=== PATIENT | female | born 1970 | race Caucasian/White ===

== ENCOUNTER 2023-06-13 04:21 | Emergency (ER) | payer BC, OTHER, SELFPAY ==
--- NOTE | ~2023-06-13 | CT_ITS ---
Non-contrast CT scan of the Abdomen and Pelvis Clinical indication: Abdominal pain Technique: 2.5 mm axial scans were obtained through the abdomen and pelvis without intravenous or or al contrast. Dose reduction technique was used on this scan by utilizing automated exposure control a nd iterative reconstruction technique. The dose-length product (DLP) was 1016.20 mGy-cm. COMPARISON: 04/08/2019 Findings: Images through the lung bases reveal 4 mm left lower lobe pulmonary nodule. There are 2 adjacent 1-2 mm stones at the left UVJ, with minimal fullness of the left ureter and left renal collecting system. There are additional punctate nonobstructing left renal stones. No right re nal or ureteral stone. No right hydronephrosis. The liver, spleen, pancreas, and adrenals appear normal. Cholecystectomy clips are noted. There is no aortic aneurysm. There is no evidence of bowel obstruction. No appendicitis. Small fat-containing umbilical hernia not ed. Images through the pelvis were performed. There is no evidence of ascites or lymphadenopathy. Urinary bladder otherwise unremarkable. No pelvic mass evident. Impression: 2 adjacent 1-2 mm left UVJ stones, with minimal left hydroureteronephrosis. Additional punctate nonobstructing left renal stones. Very small fat-containing umbilical hernia. Reviewed, dictated and finalized at [facility]. Impression: 2 adjacent 1-2 mm left UVJ stones, with minimal left hydroureteronephrosis. Additional punctate nonobstructing left renal stones. Very small fat-containing umbilical hernia.
[2023-06-13 04:25] VITALS: BP 140/77; PULSE 54; RESP 17; TEMP 35.9; O2SAT 100
[2023-06-13 04:46] LABS: Basophils Absolute Auto 0.1 K/mm3 (0.0-0.1); Basophils Percent Auto 0.6 % (0.2-1.2); Eosinophils Absolute Auto 0.3 K/mm3 (0-0.3); Eosinophils Percent Auto 3.1 % (0-4.4); Hematocrit 44.2 % (37.0-47.0); Hemoglobin 14.6 g/dL (12.0-15.0); Immature Granulocyte Absolute 0.04 K/mm3 (0.00-0.031); Immature Granulocyte Percent A 0.5 % (0-0.5); Lymphocytes Absolute Auto 2.93 K/mm3 (0.9-3.2); Lymphocytes Percent Auto 35.3 % (18.3-44.2); Mean Corpuscular Volume 87.9 fl (80-100); Mean Platelet Volume 10.4 fl (7.4-10.4); Monocytes Absolute Auto 0.5 K/mm3 (0.1-0.6); Monocytes Percent Auto 6.5 % (2.6-8.5); Neutrophils Absolute Auto 4.5 K/mm3 (1.3-6.7); Platelet Count Result 297 k/mm3 (150-375); Red Blood Count 5.03 M/mm3 (4.2-5.4); Red Cell Distribution Width 14.8 % (11.5-14.5); White Blood Count 8.3 K/mm3 (4.5-10.0)
[2023-06-13 04:55] LABS: Alanine Aminotransferase 27 U/L (6-35); Albumin Level 4.4 g/dL (3.5-5.1); Alkaline Phosphatase 86 U/L (38-126); Anion Gap 10 mmol/L (8-16); Aspartate Amino Transferase 32 U/L (14-36); Bilirubin,Total 0.8 mg/dL (0.2-1.3); Blood Urea Nitrogen 25 mg/dL (7-17); Calcium 9.5 mg/dL (8.4-10.2); Carbon Dioxide 28 mmol/L (22-30); Chloride 101 mmol/L (98-107); Estimated CRCL calculation 58 ml/min; Estimated Glomerular Filt Rate 52; Glucose 114 mg/dL (65-110); Lipase 147 U/L (23-300); Potassium 2.9 mmol/L (3.4-5.0); Sodium 139 mmol/L (137-145)
--- NOTE | 2023-06-13 05:01 | ECG_ITS ---
Measurements Intervals [place] Rate: 50 P: 36 [place]: 143 QRS: 12 QRSD: 110 T: 6 QT: 475 QTc: 435 Interpretive Statements SINUS BRADYCARDIA BORDERLINE ST-T WAVE ABNORMALITY- ANT/INF LEADS BORDERLINE ECG NO PREVIOUS ECG AVAILABLE FOR COMPARISON Electronically Signed On 06-13-2023 6:31:10 CDT by Trevor Willingham D.O.
[2023-06-13 05:03] LABS: Appearance Urine Cloudy (Clear); Bilirubin Urine 2+ (Negative); Blood Urine 3+ (Negative); Color Urine Dark Yellow (Yellow); Glucose Urine UA Trace mg/dL (Negative); Ketones Urine 1+ mg/dL (Negative); Leukocyte Esterase Ur Negative LEU/UL (Negative); Nitrate Urine Positive (Negative); Protein Urine 2+ mg/dL (Negative); Specific Grav Ur >= 1.030 (1.001-1.035); pH Urine 5.5 (5.0-9.0)
[2023-06-13 05:05] LABS: Add Urine Microscopic? YES
[2023-06-13 05:13] LABS: RBC Urine 51-75 /hpf (0-2); WBC Urine 0-5 /hpf (0-3)
[2023-06-13 05:14] LABS: Squamous Epithelial Cell Urine Few /hpf (Few)
[2023-06-13] MEDS: ONDANSETRON INJ 4 MG/2 ML VIAL IV PUSH (05:35)
[2023-06-13] MEDS: MORPHINE SULFATE (*CRX) 4 MG/ML INJ IV PUSH (05:36)
[2023-06-13] MEDS: HYDROmorphone HCL INJ (*CRX) 1 MG/ML SYR IV PUSH (05:57)
--- NOTE | 2023-06-13 06:31 | ED.GENADULT ---
HPI - General Adult General Chief complaint: Abdominal Pain Stated complaint: back and belly pain Time Seen by Provider: 06/13/23 05:08 History of Present Illness HPI narrative: Patient presents to the emergency department with severe left flank pain. Symptoms started prior to arrival. Now intolerable. Patient appears very uncomfortable. She notes history of kidney stones Related Data Allergies Allergy/AdvReac Type Severity Reaction Status Date / Time Penicillins Allergy Mild YEAST Verified 06/13/23 04:47 INFECTION Review of Systems Review of Systems: Negative except what is documented in the HPI Exam Narrative: GENERAL: Very uncomfortable. HEAD: Normocephalic, atraumatic. EYES: PERRLA and EOMI. ENT: Nares clear, no rhinorrhea or epistaxis. Mucous membranes moist. NECK: Supple. CHEST: Clear to auscultation. No respiratory distress. HEART: Regular rate and rhythm. ABDOMEN: Soft, nontender, nondistended. EXTREMITIES: Normal range of motion. No edema. SKIN: Warm, dry, no rash. NEURO: No focal deficits. Alert and oriented x3. PSYCH: Normal mood and affect. Course Course Emergency Course: Differential diagnosis includes but not limited to kidney stone, colitis, diverticulitis, pyelonephritis Morphine did not help with pain, Dilaudid ordered. Patient comfortable but desatted. Oxygen placed Vital Signs Vital signs: Vital Signs Temperature 35.9 C L 06/13/23 04:25 Pulse Rate 54 L 06/13/23 04:25 Respiratory Rate 17 06/13/23 04:25 Blood Pressure 140/77 06/13/23 04:25 Pulse Oximetry 100 06/13/23 04:25 Oxygen Delivery Room Air 06/13/23 04:25 Temperature 35.9 C L 06/13/23 04:25 Pulse Rate 55 L 06/13/23 07:12 Respiratory Rate 13 06/13/23 07:12 Blood Pressure 125/70 06/13/23 07:12 Pulse Oximetry 100 06/13/23 07:12 Oxygen Delivery Room Air 06/13/23 04:25 Medical Decision Making [facility] Narrative Medical decision making narrative: Labs ordered and reviewed by myself. CBC grossly unremarkable. CMP creatinine 1.1. Urinalysis significant for RBCs and bilirubin. High clinical concern for kidney stone. CT result pending CT shows 2 small obstructing kidney stones next which other. Patient's pain has resolved. No signs of urinary tract infection. Creatinine at baseline 1.1. Will DC once the pain medications have worn off Vital Signs Vital Signs: Vital Signs Temperature 35.9 C L 06/13/23 04:25 Pulse Rate 54 L 06/13/23 04:25 Respiratory Rate 17 06/13/23 04:25 Blood Pressure 140/77 06/13/23 04:25 Pulse Oximetry 100 06/13/23 04:25 Oxygen Delivery Room Air 06/13/23 04:25 Temperature 35.9 C L 06/13/23 04:25 Pulse Rate 55 L 06/13/23 07:12 Respiratory Rate 13 06/13/23 07:12 Blood Pressure 125/70 06/13/23 07:12 Pulse Oximetry 100 06/13/23 07:12 Oxygen Delivery Room Air 06/13/23 04:25 Lab Data 06/13/23 04:39 06/13/23 04:39 Labs: Lab Results 06/13/23 Range/Units 04:39 WBC 8.3 (4.5-10.0) K/mm3 RBC 5.03 (4.2-5.4) M/mm3 Hgb 14.6 (12.0-15.0) g/dL Hct 44.2 (37.0-47.0) % MCV 87.9 (80-100) fl MCH 29.0 (26-34) pg MCHC 33.0 (32-36) g/dl RDW 14.8 H (11.5-14.5) % Plt Count 297 (150-375) k/mm3 MPV 10.4 (7.4-10.4) fl Immature Gran % (Auto) 0.5 (0-0.5) % Neut % (Auto) 54.0 (45.5-73.1) % Lymph % (Auto) 35.3 (18.3-44.2) % Addison % (Auto) 6.5 (2.6-8.5) % Eos % (Auto) 3.1 (0-4.4) % Baso % (Auto) 0.6 (0.2-1.2) % Lymph # (Auto) 2.93 (0.9-3.2) K/mm3 Addison # (Auto) 0.5 (0.1-0.6) K/mm3 Eos # (Auto) 0.3 (0-0.3) K/mm3 Baso # (Auto) 0.1 (0.0-0.1) K/mm3 Abs Immat Gran (auto) 0.04 H (0.00-0.031) K/mm3 Absolute Neuts (auto) 4.5 (1.3-6.7) K/mm3 Absolute Nucleated RBC 0.0 (0.0-0.012) K/mm3 Nucleated RBC % 0.0 (0.0-0.2) % Sodium 139 (137-145) mmol/L Potassium 2.9 L (3.4-5.0) mmol/L Chloride 101 (98-107) mmol/L Carbon Dioxide 28
[2023-06-13 06:42] VITALS: BP 130/70; PULSE 42; RESP 9; O2SAT 99
[2023-06-13] MEDS: KETOROLAC 30 MG/ML VIAL (*BKC) IV PUSH (06:54)
[2023-06-13] MEDS: TAMSULOSIN HCL 0.4 MG CAPSULE PO (06:54)
[2023-06-13 07:12] VITALS: BP 125/70; PULSE 55; RESP 13; O2SAT 100
--- NOTE | 2023-06-13 07:21 | PC.NURSE ---
Patient report received from GE Schmitz. All questions answered and care of patient assumed.
[2023-06-13 07:44] VITALS: BP 118/63; PULSE 59; RESP 18; O2SAT 99
== END 2023-06-13 08:02 | disposition home or self-care (01) ==
PROVIDERS: Emergency Provider Emergency Medicine
DX: N13.2 Hydronephrosis with renal and ureteral calculous obstruction (principal); M54.6 Pain in thoracic spine
CPT/HCPCS: 36415; 74176; 80053; 81001; 83690; 85025; 93005; 96374; 96375; 99284; A9270; J1170; J1885; J2270; J2405

== ENCOUNTER 2024-12-01 10:44 | Emergency (ER) | payer BC, OTHER, SELFPAY ==
--- OUTSIDE RECORDS SUMMARY | 2024-12-01 10:47 | XMS_ITS | Patient Health Summary ---
Author Organization [facility] Address [address] [place] [address] Care Team Providers Care Braid Folder Name Role Phone Manjit Bone MD Primary Care Provider [phone] Note from [facility],non-owned Affiliates and Associated Physician Practices is amultiple site organization consisting of ambulatory clinics and hospital sitesin [place], [place], [place] and [place]. This disclosure is being madepursuant to the Care Everywhere program and may not contain all information available regarding this patient. Last updated 18.[facility] Allergies * Amlodipine Base(Other) -Low Criticality * Losartan(Other) -Low Criticality * Oxycodone-Acetaminophen(Nausea and/or Vomiting) -Low Criticality * Penicillins(Other) -Medium Criticality * Oxycodone-Acetaminophen(Other),Inactive Medications * Be aware that medications may not be up to date on this document. Alwaysverify current medications with the patient. * triamterene-hydroCHLOROthiazide (Maxzide-25) 37.5-25 MG tablet(Started 04/03/2024) Active Problems No known active problems Immunizations * INFLUENZA VACCINE(Given 06/25/2018) Social History Tobacco Use Types Packs/Day Years Used Date Smoking Tobacco: Former Smokeless Tobacco: Never Tobacco Cessation:Counseling Given: Not Answered Alcohol Use Standard Drinks/Week Comments Yes 1 (1 standard drink = 0.6 oz pur e alcohol) PHQ-2 Answer Date Recorded Patient Health Questionnaire-2 Score 0 06/17/2024 Sex and Gender Information Value Date Recorded Sex Assigned at Not on file Gender Identity Not on file Sexual Orientation Not on file Last Filed Vital Signs Vital Sign Reading Time Taken Comments Blood Pressure 118/80 06/24/2024 9:50 AM CDT Pulse - - Temperature - - Respiratory Rate - - Oxygen Saturation - - Inhaled Oxygen Concentration - - Weight 82.1 kg (181 lb) 06/24/2024 9:50 AM CDT Height 165.1 cm (5' 5 ) 06/24/2024 9:50 AM CDT Body Mass Index 30.12 06/24/2024 9:50 AM CDT Procedures * PAP IG LB+HPV APTIMA(Performed 06/24/2024) Performed for Well woman exam * OCCULT BLOOD FECES 1-3 SCREEN POINT OF CARE (AMB)(Performed 06/24/2024) Performed for Colon cancer screening * PAP IG LB+HPV APTIMA(Performed 06/19/2023) Performed for Well woman exam * OCCULT BLOOD FECES 1-3 SCREEN POINT OF CARE (AMB)(Performed 06/19/2023) Performed for Colon cancer screening * PAP IG LB+HPV APTIMA(Performed 06/07/2022) Performed for Well woman exam * OCCULT BLOOD FECES 1-3 SCREEN POINT OF CARE (AMB)(Performed 06/07/2022) Performed for Colon cancer screening * PAP IG LB+HPV APTIMA(Performed 01/25/2021) Performed for Well woman exam * OCCULT BLOOD FECES 1-3 SCREEN POINT OF CARE (AMB)(Performed 01/25/2021) Performed for Colon cancer screening * PAP IG LB + HPV HR(Performed 01/18/2019) Performed for Well woman exam * DERMATOPATHOLOGY(Performed 11/13/2017) * PAP IG LB + HPV HR(Performed 11/10/2017) Performed for Well woman exam * PAP IG LB + HPV HR(Performed 11/02/2016) Performed for Well woman exam Results * PAP IG LB+HPV APTIMA (06/24/2024 10:37 AM CDT) Only the most recent of4 resultswithin the time period is included. Diagnosis Comment [facility] ACCOUNT BILL Comment: NEGATIVE FOR INTRAEPITHELIAL LESION OR MALIGNANCY. CELLULAR CHANGES ASSOCIATED WITH ATROPHY ARE PRESENT. Specimen Adequacy Comment [facility] ACCOUNT BILL Comment: Satisfactory for evaluation. Endocervical component may not be distinguished in cases of atrophy. Clinician Provided ICD10 Comment [facility] ACCOUNT BILL Comment:Z01.419 Performed by Comment [facility] ACCOUNT BILL Comment:Jeannie Agustin, Cytotec hnologist (ASCP) Comment . [facility] ACCOUNT BILL Note Comment [facility] ACCOUNT BILL Comment: The Pap smear is a screening test designed to aid in the detection of premalignant and malignant conditions of the uterine cervix. It is not a diagnostic procedure and should not be used as the sole means of detecting cervical cancer. Both false-positive and false-negative reports do occur. IGLBP CPT Code Automation Comment [facility] ACCOUNT BILL Comment: This liquid based ThinPrep(R) pap test was screened with the use of an image guided system. Human papillomavirus Aptima Negative Negative [facility] ACCOUNT BILL Comment: This nucleic acid amplification test detects fourteen high-risk HPV types (16,18,31,33,35,39,45,51,52,56,58,59,66,68) without differentiation. Pathology/Cytolog y ENTIRE VAGINA / Unknown 06/24/2024 10:37 AM CDT 06/24/2024 Comment:Vaginal Release to p a Narrative [facility] ACCOUNT BILL - 06/28/2024 1:10 PM CDT Performed at: 01 - [address] [id number] Asset Protection Agent: Shonda Ag MD, Phone: [phone] Performed at: 02 - [address] [id number] Asset Protection Agent: Shonda Ag MD, Phone: [phone] Specimen Comment: [id number] Specimen Comment: No. of containers..01 ThinPrep Vial Blue Llanos MD LAB - PATHOLOGY/CYT OLOGY ORDERABLES [facility] ACCOUNT BILL [address] [place] [address] * OCCULT BLOOD FECES 1-3 SCREEN POINT OF CARE (AMB) (06/24/2024 10:21 AM CDT) Only the most recent of4 resultswithin the time period is included. Occult Blood 1 neg Negative [facility] Occult Blood 2 [facility] Occult Blood 3 [facility] Card Lot Number [facility] Card Exp Date [facility] Developer Lot Number [facility] Developer Expiration Date [facility] QC Negative [facility] QC Positive [facility] Stool STOOL SPECIMEN / Unknown 06/24/2024 10:21 AM CDT Blue Llanos MD LAB - POINT OF CARE ORDERABLES [facility] [address], [facility] [address] [place] [address], [facility] [phone] * PAP IG LB + HPV HR (01/18/2019 10:34 AM CDT) Only the most recent of3 resultswithin the time period is included. Diagnosis [facility] ACCOUNT BILL Comment: NEGATIVE FOR INTRAEPITHELIAL LESION OR MALIGNANCY. THIS SPECIMEN WAS RESCREENED PART OF OUR TRANSFER AND PUMPHOUSE OPERATOR PROGRAM. Specimen Adequacy [facility] ACCOUNT BILL Comment:Satisfactory for marky luation. No endocervical component is identified. Clinician Provided ICD10 [facility] ACCOUNT BILL Comment:Z01.419 Performed by [facility] ACCOUNT BILL Comment:Susi Sawant, Cyto technologist (ASCP) QC Reviewed by [facility] ACCOUNT BILL Comment:Cat Gillespie ytotechnologist (ASCP) Comment . [facility] ACCOUNT BILL Note [facility] ACCOUNT BILL Comment: The Pap smear is a screening test designed to aid in the detection of premalignant and malignant conditions of the uterine cervix. It is not a diagnostic procedure and should not be used as the sole means of detecting cervical cancer. Both false-positive and false-negative reports do occur. . IGLBP CPT Code Automation [facility] ACCOUNT BILL Comment: This liquid based ThinPrep(R) pap test was screened with the use of an image guided system. Human papillomavirus High Risk Negative Negative [facility] ACCOUNT BILL Comment: This high-risk HPV test detects thirteen high-risk types (16/18/31/33/35/39/45/51/52/56/58/59/68) without differentiation. . Pathology/Cytolog y ENTIRE VAGINA / Unknown 01/18/2019 10:34 AM CDT 01/18/2019 Narrative [facility] ACCOUNT BILL - 01/22/2019 11:11 AM CDT No. of containers..01 ThinPrep Vial Resulting Agency Comment Lab Testing performed at: [address] [place] [id number] Blue Llanos MD LAB - PATHOLOGY/CYT OLOGY ORDERABLES [facility] ACCOUNT BILL [address] [place] [address] * PATHOLOGY TISSUE FOR DERMATOLOGY (11/13/2017 12:00 AM ADMINISTRATIVE PROGRAM SPECIALIST) Result CASE: [id number] PATIENT: SAMAN ARRINGTON PATHOLOGIC DIAGNOSIS: A. Right cheek: INTRADERMAL MELANOCYTIC NEVUS, ERODED PRESENT AT MARGIN B. Chin: INTRADERMAL MELANOCYTIC NEVUS (see microscopic description) C. Post neck: COMPOUND MELANOCYTIC NEVUS CLINICAL DATA: A: BCC vs nevus. Check margins. B: R/O irrit. nevus. Encantado and brown. C: R/O irrit. nevus. Encantado/brown papule. GROSS DESCRIPTION: A: Received is one formalin filled container labeled with the patients name and designated right cheek. The specimen consists of a shave measuring [id number]. The margin is inked green. Jar 0. B: Received is one formalin filled container labeled with the patients name and designated chin. The specimen consists of a shave measuring [id number]. Jar 0. C: Received is one formalin filled container labeled with the patients name and designated post neck. The specimen consists of a shave measuring [id number]. The specimen is bisected and submitted in 1 cassette. Jar 0. MICROSCOPIC DESCRIPTION: SPECIMEN A The epidermis is eroded. There are nests of melanocytes within the dermis that mature with depth. This lesion is present at the margin of the specimen. SPECIMEN B There are nests of melanocytes within the dermis that mature with depth. Additional deeper sections were obtained and reviewed. SPECIMEN C There are nests of melanocytes at the dermal-epider mal junction and within the dermis. Electronicall y signed out by Marialuisa Bullock M.D., PhD. 11/15/2017 11:12:45AM DERMATOPATHOLOGY LABORATORY Comment: Performed at: Dermatopathology Laboratory [facility] Department of Dermatology [address] [place] [address], 5[address] [place] [address] Phone number: [phone] FAX: [phone] 11/13/2017 11/14/2017 Quiana Mary MD LAB - PATHOLOGY/CYTO LOGY ORDERABLES Performing Organization Address City/State/[facility] Co de Phone Number DERMATOPATHOLOGY LABORATORY [facility] Department of Dermatology [address] [place] [address], 5th Floor Lab [address] [phone] Care Teams Braid Folder Relationship Specialty Start Date End Date Manjit Bone MD PCP - General Internal Medicine 11/02/16
--- OUTSIDE RECORDS SUMMARY | 2024-12-01 10:47 | XMS_ITS | Referral Summary ---
Author Organization [facility] Address [address] [place] [address] Care Team Providers Care Ticket Worker Name Role Phone Manjit Bone MD Primary Care Provider +1- [phone] Source Comments [facility],non-[facility] Affiliates and Associated Physician Practices is amultiple site organization consisting of ambulatory clinics and hospital sitesin [place], [place], [place] and [place]. This disclosure is being madepursuant to the Care Everywhere program and may not contain all information available regarding this patient. Last updated 18.[facility] Allergies Active Allergy Reactions Criticality Noted Date Comments Amlodipine Base Other Low 10/06/2017 Losartan Other Low 10/06/2017 Oxycodone-Acetaminophen Nausea and/or Vomiting Low 06/24/2024 Penicillins Other Medium 11/02/2016 Reaction: yeast infection, Terrible yeast infection Other reaction(s): Other (See comments) Reaction: yeast infection, Medications * Be aware that medications may not be up to date on this document. Alwaysverify current medications with the patient. Medication Sig Dispensed Refills Start Date End Date Status triamterene-hydroCHLOROthiazide (Maxzide-25) 37.5-25 MG tablet 04/03/2024 Active Active Problems No known active problems Immunizations Name Administration Dates Next Due INFLUENZA VACCINE 06/25/2018 Social History Tobacco Use Types Packs/Day Years [...] Mass Index 30.12 06/24/2024 9:50 AM CDT Plan of Treatment Not on file Care Teams Ticket Worker Relationship Specialty Start Date End Date Manjit Bone MD PCP - General Internal Medicine 11/02/16
--- OUTSIDE RECORDS SUMMARY | 2024-12-01 10:47 | XMS_ITS | Clinical Summary ---
Author Organization [facility] [employer] [facility] Address [address] [place] [address] Care Team Providers Care Logistics Project Manager Name Role Phone Manjit Bone MD Primary Care Provider +1- [phone] Source Comments [facility] [employer] [facility],non-[facility] Affiliates and Associated Physician Practices is amultiple site organization consisting of ambulatory clinics and hospital sitesin [place], [place], [place] and [place]. This disclosure is being madepursuant to the Care Everywhere program and may not contain all information available regarding this patient. Last updated 18.[facility] Allergies Active Allergy Reactions Criticality Noted Date [...] Administration Dates Next Due INFLUENZA VACCINE 06/25/2018 Family History Medical History Relation Name Comments Cancer - Bladder Father Relation Name Status Comments Father Social History Tobacco Use Types Packs/Day Years [...] 06/24/2024 9:50 AM CDT Plan of Treatment Health Maintenance Due Date Last Done Comments COLON MONITORING 1969 COLONOSCOPY - COLON CA SCREENING 1969 CT COLONOGRAPHY - COLON CA SCREENING 1969 FIT - COLON CA SCREENING 1969 FLEX SIG - COLON CA SCREENING 1969 LIPID TESTING 1969 HIV SCREENING 1984 HEPATITIS C SCREENING 05/14/1987 DTAP/TDAP/TD VACCINES (1 - Tdap) 1988 HEPATITIS B VACCINE (1 of 3 - 19+ 3-dose series) 1988 SCREENING FOR DIABETES 11/10/2017 PNEUMOCOCCAL VACCINE 50+ (1 of 1 - PCV) 2019 ZOSTER VACCINE (1 of 2) 2019 COVID-19 VACCINE ( - 2023- season) 2024 12/25/2022, 03/25/2022, 03/25/2022, Additional history exists INFLUENZA VACCINE (#1) 2024 , 06/24/2019, 06/25/2018 MAMMOGRAM 07/13/2024 07/13/2023, 06/25, 07/16/2022 (Done Outside Per Report), Additional history exists DEPRESSION SCREENING 09/25/2024 06/24/2024, 06/19/2023, 06/07/2022 COLOGUARD (AGES 45-75) - COLON CA SCREENING 08/11/2025 08/11/2022 Colorectal Cancer Screening 08/11/2025 HIB VACCINE Aged Out No longer eligi ble based on patient's age to complete this topic HPV VACCINE Aged Out No longer eligi ble based on patient's age to complete this topic MENINGOCOCCAL (Group B) VACCINE Aged Out No longer eligible based on patient's age to complete this topic MENINGOCOCCAL VACCINE Aged Out No pj ovidio eligible based on patient's age to complete this topic PNEUMOCOCCAL VACCINE Aged Out No long er eligible based on patient's age to complete this topic Care Teams Logistics Project Manager Relationship Specialty Start Date End Date Manjit Bone MD PCP - General Internal Medicine 11/02/16
--- OUTSIDE RECORDS SUMMARY | 2024-12-01 10:47 | XMS_ITS | Clinical Summary ---
Author Organization [facility] Address [address] [place] [address] Care Team Providers Care Covering And Lining Supervisor Name Role Phone Manjit Bone MD Primary Care Provider [phone]- [phone] Allergies Active Allergy Reactions Criticality Noted Date Comments Amlodipine Besylate Fatigue Low 10/06/2017 Losartan Fatigue Low 10/06/2017 Oxycodone-Acetaminophen Nausea & Vomiting Low Penicillins Other (See comments) Medium Reaction: yeast infection, Medications triamterene-hydr oCHLOROthiazide 37.5-25 mg per tablet/capsule Take 1 tablet/caps ule by mouth daily 90 tablet 4 07/29/2024 Active Active Problems Problem Noted Date Diagnosed Date Screening for malignant neop lasm of colon:cologuard neg 201803/23/2021 Diverticulitis of large inte suha without perforation or abscess without bleeding 04/16/2019 Benign hypertension 07/21/2017 Resolved Problems Problem Noted Date Diagnosed Date Resolved Date Lower abdominal pain 04/16/2019 022 Immunizations Immunization Administration Dates Next Due Influenza, Quadrivalent, Rec ombinant, Egg Free, Preservative Free, Intramuscular 07/04/2022 Influenza, Unspecified 06/24/2019,2018,06/25/2018,06/25 Watson (J&J) SARS-CoV-2 Vaccination 12/03/2020 MMR 06/08/1993 Moderna SARS-CoV-2 Monovalen t Vaccination (12+ YRS) 12/25/2022 Pfizer SARS-CoV-2 Monovalent Vaccination (12+ Yrs) PURPLE 03/25/2022,09/14/2021 Td, adsorbed 06/08/1993 Tdap 07/29/2024,09/23/2014 ZOSTER Recombinant 07/18/2022,03/25/2022 Surgical History Surgery Date Site/Laterality Comments [place] LAPAROSCOPY SURG CHOLECYSTECTOMY Cholecystectomy Laparoscopic - 1990 (Added by TW Conv) HYSTERECTOMY Medical History Medical History Date Comments Personal history of other di seases of the circulatory system History of hypertension - (A dded by HANSA Conv) Personal history of urinary calculi History of renal calculi - (Added by TW Conv) Cramp and spasm Trismus - (Added by TW Conv) Hypertension Benign hypertension 07/21/2017 Diverticulitis of large inte suha without perforation or abscess without bleeding 04/16/2019 Family History Medical History Relation Name Comments Bladder Cancer Father Diverticulitis Father Diabetes Mother Kidney disease Mother Relation Name Status Comments Father Mother Alive Sister Alive Social History Tobacco Use Types Packs/Day Years Used Date Smoking Tobacco: Never Smokeless Tobacco: Never Tobacco Cessation:Counseling Given: Not Answered Alcohol Use Standard Drinks/Week Comments Yes 0 (1 standard drink = 0.6 oz pur e alcohol) AUDIT-C Answer Date Recorded Frequency of Alcohol Consumption 2-4 times a mon07/26/2019 Average Number of Drinks Not on file 019 Frequency of Binge Drinking Not on file 09/2018 Comments Unknown Sex and Gender Information Value Date Recorded Sex Assigned at Not on file Legal Sex Female 3:43 PM CLAM BED WORKER Gender Identity Not on file Sexual Orientation Not on file 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 Not on file Not on file Obstetrics History Last Filed Vital Signs Vital Sign Reading Time Taken Comments Blood Pressure 122/82 07/29/2024 8:29 AM CLAM BED WORKER Pulse 82 07/29/2024 8:29 AM CLAM BED WORKER Temperature 36.6 C (97.9 F) 07/29/2024 8:29 AM CLAM BED WORKER Respiratory Rate - - Oxygen Saturation - - Inhaled Oxygen Concentration - - Weight 81.2 kg (179 lb) 07/29/2024 8:29 AM CLAM BED WORKER Height 167.6 cm (5' 5.98 ) 07/29/2024 8:29 AM CS T Body Mass Index 28.91 07/29/2024 8:29 AM CLAM BED WORKER Plan of Treatment Scheduled Procedures Name Priority Associated Diagnoses Date/Ti me COLONOSCOPY Positive colorectal cancer screening using Cologuard test Health Maintenance Due Date Last Done Comments Colon Cancer Screening-Colonoscopy 1969 Depression Screening 1969 Hepatitis C Screening 1969 Hepatitis B Screening 1987 Covid-19 Vaccine ( season) 2024 12/25/2022, 03/25/2022, 09/14/2021, Additional history exists Influenza Vaccine (#1) 2024 , 06/24/2019, 06/24/2019, Additional history exists Breast Cancer Screening-Mammogram 07/18/2025 07/18/2024, 07/13/2023, 07/04/2022, Additional history exists Regular Well Visit/Exam 18-64 07/29/2025 07/29/2024, 07/20/2023, 07/04/2022, Additional history exists DTaP/Tdap/Td Vaccine (3 - Td or Tdap) 07/29/2034 07/29/2024, 09/23/2014, 06/08/1993 Zoster Vaccine Completed 07/18/2022, 03/25/2022 Colon Cancer Screening-DNA Stool Discontinued 08/11/2022 Colon Cancer Screening-FIT Discontinued 08/11/2022 Pneumococcal vaccine <65 Aged Out No longer eligible based on patient's age to complete this topic Procedures Procedure Name Priority Date/Time Associated Diagnosis Comments SCREENING MAMMOGRAM BILATERAL W MEET Schedule Routine, Read Routine (OP Routine) 07/18/2024 7:40 AM CDT Screening mammogram, encounter for STOOL DNA COLOGUARD Routine 08/11/2022 2:20 PM CLAM BED WORKER Screening for colorectal cancer from Last 3 Months or Most Recently Relevant to Health Maintenance Results * Screening Mammogram Bilateral W Meet (07/18/2024 7:40 AM CDT) Anatomical Region Laterality Modality Breast Bilateral Mammography Narrative 07/18/2024 10:38 AM CDT Examination: Screening Mammogram Bilateral W Meet: 07/18/24 Clinical: Screening mammogram, encounter for. Prior Study Comparisons: Comparison was made to the prior available relevant studies at the time of interpretation. Findings: Screening Mammogram Bilateral W Meet Bilateral No significant masses, malignant type calcifications, skin thickening, nipple retraction, or significant lymphadenopathy is noted in either breast. Computer Aided Detection was utilized for the interpretation of this study. There are scattered areas of fibroglandular density. The patient will be notified of results by letter. Impression: BI-RADS ATLAS category (overall): 1 - Negative Overall Assessment: 1 - Negative Recommendation: - Routine Screening Mammogram in 1 Yr for both breasts. us Self Screening Mammogram IMG MAMMO PROCEDURES Fi nal Result * Stool DNA - Cologuard (08/11/2022 2:20 PM CLAM BED WORKER) Stool DNA - Cologuard Negative Negative [employer] (CLIA #:[id number]) Comment: NEGATIVE TEST RESULT. A negative Cologuard result indicates a low likelihood that a colorectal cancer (CRC) or advanced adenoma (adenomatous polyps with more advanced pre-malignant features) is present. The chance that a person with a negative Cologuard test has a colorectal cancer is less than 1 in 1500 (negative predictive value >99.9%) or has an advanced adenoma is less than 5.3% (negative predictive value 94.7%). These data are based on a prospective cross-sectional study of 10,000 individuals at average risk for colorectal cancer who were screened with both Cologuard and colonoscopy. (Lacie Negro et al, N Engl J Med 2014;370(14):1961-1489) The normal value (reference range) for this assay is negative. COLOGUARD RE-SCREENING RECOMMENDATION: Periodic colorectal cancer screening is an important part of preventive healthcare for asymptomatic individuals at average risk for colorectal cancer. Following a negative Cologuard result, the [place] Cancer Society and U.S. Multi-Society Task Force screening guidelines recommend a Cologuard re-screening interval of 3 years. References: [place] [employer] Society Guideline for Colorectal Cancer Screening: https://www.cancer.org/cancer/llknj-ofifqc-bhqrbe/ohscoemly-zxwarllxt-zfkwxuc/ac s-rec ommendations.html.; Андрей VALERIO, Broderick BOB, Abigail BALTAZAR, Colorectal Cancer Screening: Recommendations for Physicians and Patients from the U.S. Multi-Society Task Force on Colorectal Cancer Screening , Am J Gastroenterology 2017; 112:1727-8964. TEST DESCRIPTION: Composite algorithmic analysis of stool DNA-biomarkers with hemoglobin immunoassay. Quantitative values of individual biomarkers are not reportable and are not associated with individual biomarker result reference ranges. Cologuard is intended for colorectal cancer screening of adults of either sex, 45 years or older, who are at average-risk for colorectal cancer (CRC). Cologuard has been approved for use by the U.S. FDA. The performance of Cologuard was established in a cross sectional study of average-risk adults aged 50-84. Cologuard performance in patients ages 45 to 49 years was estimated by sub-group analysis of near-age groups. Colonoscopies performed for a positive result may find as the most clinically significant lesion: colorectal cancer [4.0%], advanced adenoma (including sessile serrated polyps greater than or equal to 1cm diameter) [20%] or non- advanced adenoma [31%]; or no colorectal neoplasia [45%]. These estimates are derived from a prospective cross-sectional screening study of 10,000 individuals at average risk for colorectal cancer who were screened with both Cologuard and colonoscopy. (Lacie Jaeger. et al, N Engl J Med 2014;370(14):5384-7410.) Cologuard may produce a false negative or false positive result (no colorectal cancer or precancerous polyp present at colonoscopy follow up). A negative Cologuard test result does not guarantee the absence of CRC or advanced adenoma (pre-cancer). The current Cologuard screening interval is every 3 years. ([place] Cancer Society and U.S. Multi-Society Task Force). Cologuard performance data in a 10,000 patient pivotal study using colonoscopy as the reference method can be accessed at the following location: www.[employer]/results. Additional description of the Cologuard test process, warnings and precautions can be found at www.[employer].com. Stool 08/11/2022 2:20 PM CLAM BED WORKER 08/12/2022 10:37 AM CLAM BED WORKER Manjit Bone MD LAB BODY FLUIDS AND STOOLS ORDERABLES Final Result [facility] (CLIA #:[id number]) [place] [address] from Last 3 Months or Most Recently Relevant to Health Maintenance Insurance ANTHEM ACCESS CHOICE ANTHEM ACCESS AETNA SIG [id number] [place] [address] [place] [address] [facility] [address] [place] [place] [address] [place] [address] FORMERLY [facility], [facility] ACCESS CHOICE Member Subscriber Plan / Payer ( fective 2009-Present) Name:Christina Arrington Relation to Subscriber:Self Name:CHRISTINA ARRINGTON Payer ID:[id number] (NAIC) Type:[place] Address: [address] [place] [address] ANTHEM ACCESS CHOICE Member Subscriber Plan / Payer (Ef fective 2018-Present) Name:TrangChristina Relation to Subscriber:Self Name:TRANGCHRISTINA A Payer ID:[id number] (NAIC) Type:[facility] Address: [facility] [id number] [address] Care Teams Covering And Lining Supervisor Relationship Specialty Start Date End Date Manjit Bone MD [address] [place] [address] PCP - General 01/20/17
--- OUTSIDE RECORDS SUMMARY | 2024-12-01 10:47 | XMS_ITS | Referral Summary ---
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 on file Not on file Last Filed Vital Signs Vital Sign Reading Time Taken Comments Blood Pressure 122/82 07/29/2024 8:29 AM OUTSIDE INSTALLATION MACHINIST Pulse 82 07/29/2024 8:29 AM OUTSIDE INSTALLATION MACHINIST Temperature 36.6 C (97.9 F) 07/29/2024 8:29 AM OUTSIDE INSTALLATION MACHINIST Respiratory Rate - - Oxygen Saturation - - Inhaled Oxygen Concentration - - Weight 81.2 kg (179 lb) 07/29/2024 8:29 AM OUTSIDE INSTALLATION MACHINIST Height 167.6 cm (5' 5.98 ) 07/29/2024 8:29 AM CS T Body Mass Index 28.91 07/29/2024 8:29 AM OUTSIDE INSTALLATION MACHINIST Plan of Treatment Scheduled Procedures Name Priority Associated Diagnoses Date/Ti me COLONOSCOPY Positive colorectal cancer screening using Cologuard test Procedures Procedure Name Priority Date/Time Associated Diagnosis Comments SCREENING MAMMOGRAM BILATERAL W MEET Schedule Routine, Read Routine (OP Routine) 07/18/2024 7:40 AM CDT Screening mammogram, encounter for STOOL DNA COLOGUARD Routine 08/11/2022 2:20 PM OUTSIDE INSTALLATION MACHINIST Screening for colorectal cancer from Last 3 [...] Stool DNA - Cologuard (08/11/2022 2:20 PM OUTSIDE INSTALLATION MACHINIST) Stool DNA - Cologuard Negative Negative [facility] (CLIA #:[id number]) Comment: NEGATIVE TEST RESULT. A negative Cologuard [...] screened with both Cologuard and colonoscopy. (Lacie Hemphill al, N Engl J Med 2014;370(14):6529-4682) The normal value (reference range) for this assay is negative. COLOGUARD RE-SCREENING RECOMMENDATION: Periodic colorectal cancer screening is an important part of preventive healthcare for asymptomatic individuals at average risk for colorectal cancer. Following a negative Cologuard result, the [place] Cancer Society and U.S. Multi-Society Task Force screening guidelines recommend a Cologuard re-screening interval of 3 years. References: [place] Cancer Society Guideline for Colorectal Cancer Screening: https://www.cancer.org/cancer/isnac-ptrwvp-sgettj/lzwqrqbzj-omlbojlyi-zmahaii/ac s-rec ommendations.html.; Андрей VALERIO, Broderick BOB, Abigail BALTAZAR, Colorectal Cancer Screening: Recommendations for Physicians and Patients from the U.S. Multi-Society Task Force on Colorectal Cancer Screening , Am J Gastroenterology 2017; 112:8334-3015. TEST DESCRIPTION: Composite algorithmic analysis of stool [...] Negro et al, N Engl J Med 2014;370(14):4896-9701.) Cologuard may produce a false negative or false positive result (no colorectal cancer or precancerous polyp present at colonoscopy follow up). A negative Cologuard test result does not guarantee the absence of CRC or advanced adenoma (pre-cancer). The current Cologuard screening interval is every 3 years. ([place] Cancer Society and U.S. Multi-Society Task Force). Cologuard performance data in a 10,000 patient pivotal study using colonoscopy as the reference method can be accessed at the following location: www.[employer]/results. Additional description of the Cologuard test process, warnings and precautions can be found at www.cologuard.com. Stool 08/11/2022 2:20 PM OUTSIDE INSTALLATION MACHINIST 08/12/2022 10:37 AM OUTSIDE INSTALLATION MACHINIST Manjit Bone MD LAB BODY FLUIDS AND STOOLS ORDERABLES Final Result [facility] (CLIA #:[id number]) [address] [place] [address] from Last 3 Months or Most Recently Relevant to Health Maintenance Insurance ANTHEM ACCESS CHOICE ANTHEM ACCESS AETNA SIG [id number] [facility] [place] [address] [address] [place] [address] [facility] [place] [address] [place] [address] [employer] ACCESS CHOICE Member Subscriber Plan / Payer ( fective 2009-Present) Name:Melany Arrington Relation to Subscriber:Self Name:MELANY ARRINGTON Payer ID:[id number] (NAIC) Type: [employer] Address: [address] [facility] H[facility]/PPO Address: [facility] [address] [place] [address] ANTHEM ACCESS CHOICE Member Subscriber Plan / Payer (Ef fective 2018-Present) Name:Melany Arrington Relation to Subscriber:Self Name:MELANY ARRINGTON Payer ID:[id number] ([facility]) Type:[facility] Address: [address] [facility] HMO/PPO Address: [facility] [address] [place] [address] Care Teams General Operator Relationship Specialty Start Date End Date Manjit Bone MD [address] [place] [address] PCP - General 01/20/17
--- NOTE | 2024-12-01 10:49 | ED_ITS ---
HPI - Extremity Problem General Chief complaint: Back Pain/Injury Stated complaint: LT Leg Pain Time Seen by Provider: 12/01/24 10:49 Source: patient, RN notes reviewed and old records reviewed Mode of arrival: ambulatory Limitations: no limitations History of Present Illness HPI Narrative: patient presents with complaints of low back pain that radiates to the left leg. She reports that pain began 2 weeks ago. She denies any injury or trauma. She denies any numbness or tingling. She denies any change in bowel or bladder pattern. She is observed ambulating with a steady gait. States that she has been taking multiple skub-ypm-igdluiw medications and seeing her chiropractor with poor results. She is not in any obvious distress at this time Related Data Allergies Allergy/AdvReac Type Severity Reaction Status Date / Time Penicillins AdvReac Mild YEAST Verified 12/01/24 10:58 INFECTION Review of Systems Review of Systems: All systems reviewed & are unremarkable except as noted in HPI and below Constitutional: Constitutional: Reports no additional constitutional complaints ENT: Reports system reviewed and no additional complaints, except as documented Cardiovascular: Cardiovascular: Reports no additional cardiovascular complaints Respiratory: Respiratory: Reports no additional respiratory complaints Gastrointestinal: Gastrointestinal: Reports no additional gastrointestinal complaints Musculoskeletal: Musculoskeletal: Reports no additional musculoskeletal complaints, Reports as per HPI, Reports back pain and Reports radiating pain into limb PMFSH Comments At the time of my signature, I reviewed and agree with the nursing past medical, surgical, social, and family history. There is no relevant family history pertinent to the patient complaint. Exam Const: General: cooperative, no acute distress, alert and awake Orientation/consciousness: oriented to person, oriented to place and oriented to time HENMT: Head: normal to inspection Resp: Effort & Inspection: normal respiratory effort and able to speak in complete sentences Auscultation: clear to auscultation bilaterally, no crackles, no rales, no rhonchi and no wheezes Cardio: Palpation: normal PMI Rate: regular rate Rhythm: regular rhythm Heart sounds: S1 normal heart sound present and S2 normal heart sound present Back/Spine/Pelvis: Thoracic/Lumbar Spine: thoracic and lumbar spine normal to inspection, No thoraco-lumbar ROM limited and thoraco-lumbar spasm on the left Neuro: General: oriented to person, oriented to place and oriented to time Cranial nerves: Yes CN's II-XII intact bilaterally Psych: Appearance: grossly normal Thought process: Normal thought process present Insight: Good insight present (Psych) Judgement: Good judgement present (Psych) Course Course Level of Care: Express Care Visit Vital Signs Vital signs: Reviewed MDM - Extremity (Nontraumatic) MDM Narrative Medical decision making narrative: history and exam consistent with sciatica. Most her prednisone and muscle rela xants. Supportive care discussed with patient. Discharge instructions reviewed with patient, as well as provided in writing per nursing staff. The instructions also include specific and strict return/GO TO THE ER as well as f/u information. All questions have been answered, and the patient deny any further questions with discharge and discharge plan. Some parts of this dictation were generated by voice recognition software and may contain typographical and/or grammatical inaccuracies. Differential Diagnosis Differential diagnosis: Likely other (lumbago, acute back pain) Discharge Plan Discharge Clinical Impression: Sciatic nerve pain Qualifiers: Laterality: left Qualified Code(s): M54.32 - Sciatica, left side Patient Disposition: Home, Self-Care Condition: Stable Instructions: Antibiotic Form, Sciatica (ED) Additional Instructions: Take medication as prescribed. Follow-up with primary care provider. Emergency department for new or worse symptoms Patient Language: Guamanian Prescriptions: New prednisone 50 mg tablet 50 mg PO DAILY Qty: 5 0RF cyclobenzaprine 10 mg tablet 10 mg PO TID PRN (Reason: muscle spasm) Qty: 14 0RF No Action hydrocodone-acetaminophen 5-325 mg tablet 1 tablet PO Q6H PRN (Reason: pain) Qty: 20 0RF ondansetron 4 mg tablet,disintegrating 4 mg PO Q8H PRN (Reason: nausea and vomiting) Qty: 20 0RF ketorolac 10 mg tablet 10 mg PO Q6H PRN (Reason: pain) 5 Days Qty: 20 0RF tamsulosin [Flomax] 0.4 mg capsule 0.4 mg PO DAILY Qty: 7 0RF Follow-up/Referrals: Lizandro,Manjit Shay [Other] - 2 Weeks Time of Disposition: 11:03
[2024-12-01 10:51] VITALS: BP 129/82; PULSE 98; RESP 18; TEMP 36.3; O2SAT 100
== END 2024-12-01 11:04 | disposition home or self-care (01) ==
PROVIDERS: Emergency Provider Nurse Practitioner Family
DX: M54.32 Sciatica, left side (principal); I10 Essential (primary) hypertension; K21.9 Gastro-esophageal reflux disease without esophagitis
CPT/HCPCS: 99213; G0463